=== PATIENT | male | born 1975 | race African-American/Black ===

== ENCOUNTER 2020-01-10 04:09 | Inpatient (IN) ==
[2020-01-10] MEDS ORDERED: Aspirin 81 MG TAB.CHEW PO ONE (04:16)
[2020-01-10] MEDS ORDERED: Nitroglycerin 0.4 MG TAB.SUBL SL PRN (04:16)
[2020-01-10] MEDS ORDERED: Aspirin 81 MG TAB.CHEW ONE (04:27)
[2020-01-10 04:42] LABS: Basophils % 0.2 %; Hematocrit 48.8 % (37.5-50.1); Hemoglobin 14.4 g/dL (12.9-16.9); Immature Granulocytes % 0.3 % (0-4); Immature Platelets 10.6 % (1.1-6.1); Lymphocytes # 0.6 K/mcL (0.6-4.6); Lymphocytes % 6.1 %; Mean Corpuscular HGB Conc 29.5 g/dL (31.6-35.5); Mean Corpuscular Volume 78.1 fL (83.0-100.0); Mean Platelet Volume 13.1 fL (9.4-12.4); Monocytes # 0.6 K/mcL (0.0-1.3); Monocytes % 5.5 %; Neutrophils # 8.9 K/mcL (1.6-8.9); Platelet Count 212 K/mcL (140-400); Red Blood Count 6.25 M/mcL (4.19-5.50); Red Cell Distribution Width 15.9 % (11.5-14.5); Segmented Neutrophils % 87.9 %; White Blood Count 10.1 K/mcL (4.3-11.1)
[2020-01-10 04:43] LABS: INR 1.1; Prothrombin Time 12.1 Seconds (9.4-12.1)
[2020-01-10 04:46] LABS: Activated Partial Thrombo Time 29.4 Seconds (26.0-36.0)
[2020-01-10 05:24] LABS: BUN/Creatinine Ratio 17 (6-26); Blood Urea Nitrogen 45 mg/dL (6-20); Calcium 10.9 mg/dL (8.6-10.3); Carbon Dioxide 14 mEq/L (23-29); Chloride 78 mEq/L (98-107); Glucose 1747 mg/dL (70-105); Osmolality,Calculated 343 (280-300); Potassium 6.1 mEq/L (3.5-5.1); Sodium 115 mEq/L (136-145); Troponin I < 0.03 ng/mL (< 0.04); eGFR For African Americans 32 (> 60); eGFR For Non-African Americans 27 (> 60)
[2020-01-10] MEDS ORDERED: 0.9 % Sodium Chloride 1,000 ML ONE (05:38)
[2020-01-10] MEDS ORDERED: *HR* Dextrose 50 % in Water (Syg) 50 ML SYRINGE IVP PRN ×2 (05:38→06:06)
[2020-01-10 05:40] LABS: ABG Base Excess -7 mEq/L (-2 to 3); ABG HCO3 16 mEq/L (21-27); ABG Oxygen Saturation 91 % (95-98); ABG PCO2 29 mmHg (35-45); ABG PH 7.37 pH Units (7.32-7.45); ABG PO2 62 mmHg (85-104); ABG TCO2 17 mEq/L (20-26)
[2020-01-10] MEDS ORDERED: Insulin Human Regular 100 UNIT in 0.9 % Sodium Chloride 100 ML IVC SCH ×2 (05:45→06:15)
[2020-01-10] MEDS: 0.9 % Sodium Chloride 1,000 ML IVC SCH ×3 (05:45→08:00)
[2020-01-10] MEDS ORDERED: D5% in 0.45% NACL 1,000 ML IVC PRN (06:06)
[2020-01-10] MEDS ORDERED: 0.9 % Sodium Chloride 1,000 ML IVC SCH (06:15)
[2020-01-10] MEDS ORDERED: Naloxone 0.4 MG/ML INJ IVP PRN (06:24)
[2020-01-10 06:55] LABS: Bilirubin,Urine Negative (Negative); Blood,Urine Trace (Negative); Clarity,Urine Clear (Clear); Color,Urine Yellow (Yellow); Glucose,Urine (UA) >=1000 mg/dL (Normal); Ketones,Urine 15 mg/dL (Negative); Leukocyte Esterase,Urine Negative (Negative); Nitrite,Urine Negative (Negative); Protein,Urine Negative (Neg-Trace); Specific Gravity,Urine > 1.030 (1.010-1.025); Urobilinogen,Urine Normal (Normal)
[2020-01-10 06:57] LABS: Bacteria,Urine None Seen per hpf (None-Few); Hyaline Casts,Urine None Seen per lpf (None-Few); RBC,Urine 0-3 per hpf (0-3); Squamous Epithelial Cell,Urine Few per lpf (None-Few); WBC,Urine 0-3 per hpf (0-3)
[2020-01-10] MEDS ORDERED: Ringers Solution, Lactated 2,000 ML IVC ONE (07:14)
[2020-01-10 07:54] LABS: Estimated Average Glucose 295 mg/dl
[2020-01-10 08:11] LABS: Albumin 4.6 g/dL (3.5-5.7); Albumin/Globulin Ratio 1.4 (1.1-2.2); Bilirubin,Direct 0.2 mg/dL (0.0-0.2); Bilirubin,Total 1.2 mg/dL (0.3-1.0); Globulin 3.3 g/dL (2.4-3.5); Total Protein 7.9 g/dL (6.4-8.9)
[2020-01-10 08:27] LABS: Calcium 10.8 mg/dL (8.6-10.3); Phosphorous 5.2 mg/dL (2.7-4.5); Potassium 5.7 mEq/L (3.5-5.1)
[2020-01-10 10:35] LABS: Calcium 10.6 mg/dL (8.6-10.3); Potassium 4.8 mEq/L (3.5-5.1)
[2020-01-10] MEDS: Loratadine 10 MG TABLET PO SCH (10:42)
[2020-01-10] MEDS: allopurinoL 100 MG TABLET PO SCH (10:42)
[2020-01-10 11:41] LABS: Thyroid Stimulating Hormone 20.966 mcIU/mL (0.340-5.600)
[2020-01-10 11:42] LABS: Triiodothyronine (T3) Free 3.23 pg/mL (2.50-3.90)
[2020-01-10] MEDS ORDERED: 0.45 % Sodium Chloride w/KCl 20 MEQ/1,000 ML MLS IVC SCH (11:45)
[2020-01-10] MEDS: Budesonide Neb 0.5 MG/2 ML IH SCH ×2 (11:51→19:55)
[2020-01-10] MEDS: Tiotropium 18 MCG inhalation IH SCH (11:52)
[2020-01-10 12:34] LABS: Calcium 10.8 mg/dL (8.6-10.3); Potassium 4.5 mEq/L (3.5-5.1)
[2020-01-10] MEDS: *HR* Heparin 5,000 UNIT/ML VIAL SQ SCH ×2 (14:42→22:19)
[2020-01-10 14:54] LABS: Calcium 10.6 mg/dL (8.6-10.3); Potassium 4.4 mEq/L (3.5-5.1)
[2020-01-10] MEDS: D5% in 0.45% NACL w KCl 20 MEQ/1,000 ML MLS IVC PRN ×2 (19:02→23:02)
[2020-01-10 19:06] LABS: Calcium 10.3 mg/dL (8.6-10.3)
[2020-01-10 23:08] LABS: Calcium 9.9 mg/dL (8.6-10.3); Potassium 3.8 mEq/L (3.5-5.1)
[2020-01-11] MEDS: D5% in 0.45% NACL w KCl 20 MEQ/1,000 ML MLS IVC PRN (03:09)
[2020-01-11] MEDS ORDERED: Insulin DETEMIR 100 UNIT/ML X5UNITS SQ ONE (04:45)
[2020-01-11 04:52] LABS: Mean Platelet Volume 11.9 fL (9.4-12.4)
[2020-01-11 04:54] LABS: Basophils % 0.5 %; Eosinophils # 0.1 K/mcL (0.0-0.6); Hematocrit 39.7 % (37.5-50.1); Immature Granulocytes % 0.3 % (0-4); Lymphocytes # 2.1 K/mcL (0.6-4.6); Lymphocytes % 23.9 %; Mean Corpuscular HGB Conc 32.7 g/dL (31.6-35.5); Mean Corpuscular Hemoglobin 22.8 pg (28.0-33.3); Mean Corpuscular Volume 69.8 fL (83.0-100.0); Monocytes # 0.6 K/mcL (0.0-1.3); Monocytes % 6.9 %; Neutrophils # 5.9 K/mcL (1.6-8.9); Platelet Count 197 K/mcL (140-400); Red Blood Count 5.69 M/mcL (4.19-5.50); Segmented Neutrophils % 67.4 %; White Blood Count 8.8 K/mcL (4.3-11.1)
[2020-01-11 05:04] LABS: BUN/Creatinine Ratio 14 (6-26); Blood Urea Nitrogen 21 mg/dL (6-20); Carbon Dioxide 24 mEq/L (23-29); Chloride 113 mEq/L (98-107); Glucose 137 mg/dL (70-105); Magnesium 2.2 mg/dL (1.6-2.6); Osmolality,Calculated 301 (280-300); Potassium 3.4 mEq/L (3.5-5.1); Sodium 143 mEq/L (136-145); eGFR For African Americans > 60 (> 60); eGFR For Non-African Americans 53 (> 60)
[2020-01-11] MEDS: *HR* Heparin 5,000 UNIT/ML VIAL SQ SCH ×3 (05:40→21:05)
[2020-01-11] MEDS: Tiotropium 18 MCG inhalation IH SCH (07:29)
[2020-01-11] MEDS: Budesonide Neb 0.5 MG/2 ML IH SCH ×2 (07:29→21:51)
[2020-01-11] MEDS ORDERED: Insulin LISPRO 300 UNITS/3 ML VIAL SQ SCH ×3 (07:30→21:00)
[2020-01-11] MEDS: Loratadine 10 MG TABLET PO SCH (08:12)
[2020-01-11] MEDS: allopurinoL 100 MG TABLET PO SCH (08:12)
[2020-01-11] MEDS ORDERED: Saline Nasal Spray 44 ML BOTTLE NS PRN ×2 (08:12→10:02)
[2020-01-11] MEDS ORDERED: D5% in Water 1,000 ML IVC PRN ×2 (09:30→10:02)
[2020-01-11] MEDS ORDERED: Dextrose Gel 15 GM/37.5 ML TUBE PO PRN ×4 (09:30→10:02)
[2020-01-11] MEDS ORDERED: *HR* Dextrose 50 % in Water (Syg) 50 ML SYRINGE IVP PRN ×2 (09:30→10:02)
[2020-01-11] MEDS ORDERED: Naloxone 0.4 MG/ML INJ IVP PRN (10:02)
[2020-01-11] MEDS ORDERED: Nitroglycerin 0.4 MG TAB.SUBL SL PRN (10:02)
[2020-01-11] MEDS: Insulin LISPRO 300 UNITS/3 ML VIAL SQ SCH ×2 (12:24→16:32)
[2020-01-11] MEDS: Nystatin SUSP 5 ML UD.LIQ PO SCH ×3 (12:24→21:03)
[2020-01-11] MEDS ORDERED: Insulin DETEMIR 100 UNIT/ML X5UNITS SQ SCH ×2 (21:00)
[2020-01-12 01:47] LABS: Hemoglobin 12.8 g/dL (12.9-16.9); Red Cell Distribution Width 14.2 % (11.5-14.5)
[2020-01-12 01:49] LABS: Basophils % 0.6 %; Eosinophils # 0.1 K/mcL (0.0-0.6); Eosinophils % 1.3 %; Hematocrit 38.8 % (37.5-50.1); Immature Granulocytes % 0.4 % (0-4); Lymphocytes # 2.5 K/mcL (0.6-4.6); Mean Corpuscular Hemoglobin 22.9 pg (28.0-33.3); Mean Corpuscular Volume 69.3 fL (83.0-100.0); Mean Platelet Volume 10.8 fL (9.4-12.4); Monocytes # 0.5 K/mcL (0.0-1.3); Monocytes % 6.6 %; Platelet Count 184 K/mcL (140-400); Segmented Neutrophils % 56.1 %; White Blood Count 7.1 K/mcL (4.3-11.1)
[2020-01-12 02:11] LABS: BUN/Creatinine Ratio 12 (6-26); Blood Urea Nitrogen 16 mg/dL (6-20); Calcium 9.3 mg/dL (8.6-10.3); Carbon Dioxide 21 mEq/L (23-29); Chloride 107 mEq/L (98-107); Glucose 351 mg/dL (70-105); Osmolality,Calculated 293 (280-300); Potassium 3.8 mEq/L (3.5-5.1); Sodium 134 mEq/L (136-145); eGFR For African Americans > 60 (> 60); eGFR For Non-African Americans 58 (> 60)
[2020-01-12 02:32] LABS: Platelet Estimate Normal (Normal)
[2020-01-12] MEDS: *HR* Heparin 5,000 UNIT/ML VIAL SQ SCH ×3 (05:46→21:04)
[2020-01-12] MEDS: Budesonide Neb 0.5 MG/2 ML IH SCH ×2 (07:42→21:40)
[2020-01-12] MEDS: Tiotropium 18 MCG inhalation IH SCH (07:42)
[2020-01-12] MEDS: Loratadine 10 MG TABLET PO SCH (07:54)
[2020-01-12] MEDS: Nystatin SUSP 5 ML UD.LIQ PO SCH ×4 (07:54→21:07)
[2020-01-12] MEDS: allopurinoL 100 MG TABLET PO SCH (07:54)
[2020-01-12] MEDS: Insulin LISPRO 300 UNITS/3 ML VIAL SQ SCH ×5 (07:58→23:48)
[2020-01-12] MEDS ORDERED: Insulin LISPRO 300 UNITS/3 ML VIAL SQ SCH (10:47)
[2020-01-12] MEDS: Insulin DETEMIR 100 UNIT/ML X5UNITS SQ SCH ×2 (11:40→21:04)
[2020-01-12] MEDS: 0.9 % Sodium Chloride 1,000 ML IVC SCH (11:41)
[2020-01-12] MEDS: Magic Mouthwash 10 ML UD Cup PO SCH ×2 (12:43→16:47)
[2020-01-12] MEDS: amLODIPine 5 MG TABLET PO SCH (13:52)
[2020-01-13] MEDS: 0.9 % Sodium Chloride 1,000 ML IVC SCH (01:28)
[2020-01-13] MEDS: Insulin LISPRO 300 UNITS/3 ML VIAL SQ SCH ×3 (03:54→12:19)
[2020-01-13 05:14] LABS: Basophils % 0.7 %; Eosinophils # 0.1 K/mcL (0.0-0.6); Eosinophils % 1.5 %; Hematocrit 37.7 % (37.5-50.1); Immature Granulocytes % 0.2 % (0-4); Immature Platelets 10.3 % (1.1-6.1); Lymphocytes # 2.2 K/mcL (0.6-4.6); Lymphocytes % 46.9 %; Mean Corpuscular HGB Conc 31.8 g/dL (31.6-35.5); Mean Corpuscular Hemoglobin 22.6 pg (28.0-33.3); Mean Corpuscular Volume 71.1 fL (83.0-100.0); Mean Platelet Volume 12.4 fL (9.4-12.4); Monocytes # 0.3 K/mcL (0.0-1.3); Monocytes % 7.4 %; Platelet Count 166 K/mcL (140-400); Red Cell Distribution Width 13.9 % (11.5-14.5); Segmented Neutrophils % 43.3 %; White Blood Count 4.6 K/mcL (4.3-11.1)
[2020-01-13 05:29] LABS: BUN/Creatinine Ratio 14 (6-26); Blood Urea Nitrogen 16 mg/dL (6-20); Calcium 8.4 mg/dL (8.6-10.3); Carbon Dioxide 21 mEq/L (23-29); Chloride 108 mEq/L (98-107); Glucose 217 mg/dL (70-105); Magnesium 1.8 mg/dL (1.6-2.6); Osmolality,Calculated 294 (280-300); Phosphorous 3.2 mg/dL (2.7-4.5); Potassium 3.4 mEq/L (3.5-5.1); Sodium 138 mEq/L (136-145); eGFR For African Americans > 60 (> 60); eGFR For Non-African Americans > 60 (> 60)
[2020-01-13] MEDS: *HR* Heparin 5,000 UNIT/ML VIAL SQ SCH (05:58)
[2020-01-13 06:43] VITALS: BP 122/78
[2020-01-13] MEDS: Loratadine 10 MG TABLET PO SCH (08:05)
[2020-01-13] MEDS: amLODIPine 5 MG TABLET PO SCH (08:05)
[2020-01-13] MEDS: allopurinoL 100 MG TABLET PO SCH (08:05)
[2020-01-13] MEDS: Magic Mouthwash 10 ML UD Cup PO SCH (08:06)
[2020-01-13] MEDS: Insulin DETEMIR 100 UNIT/ML X5UNITS SQ SCH (08:09)
[2020-01-13] MEDS ORDERED: allopurinoL 100 MG TABLET PO SCH (09:00)
[2020-01-13] MEDS: Nystatin SUSP 5 ML UD.LIQ PO SCH ×2 (09:01→12:18)
[2020-01-13] MEDS ORDERED: Insulin DETEMIR 100 UNIT/ML X5UNITS SQ ONE (09:09)
[2020-01-13] MEDS: Tiotropium 18 MCG inhalation IH SCH (10:14)
[2020-01-13] MEDS: Budesonide Neb 0.5 MG/2 ML IH SCH (10:14)
[2020-01-13] MEDS ORDERED: Insulin DETEMIR 100 UNIT/ML X5UNITS SQ SCH (21:00)
== END 2020-01-13 17:36 | disposition home or self-care (01) | DRG 638 ==
LOC: EMEROOARM 04:09 → ICNU 04:09 → SUATTDRO 08:58 → 3BNU 01-11 14:29
PROVIDERS: ADMIT Student in an Organized Health Care Education/Training Program; ATTEND Internal Medicine